=== PATIENT | male | born 1990 | race Caucasian/White ===

== ENCOUNTER 2019-11-10 15:12 | Emergency (ER) | payer OTHER, SELFPAY ==
--- NOTE | 2019-11-10 15:28 | HMH.EDUTC ---
[facility] – [place], [place] Disposition Clinical Impression: Contact dermatitis and eczema Disposition: Home, Self-Care Condition on Discharge: Good Instructions: Contact Dermatitis, DI for Contact Dermatitis Additional Instructions: Try to avoid the offending substance. Take OTC benedryl regularly for the next few days. Follow up with your regular doctor. GO TO THE ER FOR ANY WORSENING SYMPTOMS OR CONCERNS, ESPECIALLY IF YOU HAVE ANY SHORTNESS OF BREATH OR MOUTH SWELLING. Prescriptions: methylPREDNISolone [Medrol] 4 mg PO DIRECTED 6 Days #21 tab.ds.pk Transmission Status: Received by [facility] Triamcinolone Acetonide 1 applicatio TP TIDP PRN 7 Days #1 tube PRN Reason: Itching Transmission Status: Received by [facility] Referrals: Vivek Moore [Primary Care Provider] - Forms: Work/School Release Time of Disposition: 15:47 Medical Decision Making - Medical Records Medical records reviewed: No: I reviewed the patient's medical records. - Joey Inquiry Pt receiving controlled substance: No Vital Signs: 11/10/19 15:32 11/10/19 15:52 Temperature 98.8 F 98.8 F Temperature Source Oral Pulse Rate 90 Pulse Rate [Right Brachial] 90 Respiratory Rate 20 20 Blood Pressure 128/73 Blood Pressure [Right Arm] 128/73 Blood Pressure Mean [Right Arm] 91 Blood Pressure Source [Right Arm] Automatic Cuff Blood Pressure Position [Right Arm] Sitting 02 Sat by Pulse Oximetry 100 Oxygen Delivery Method Room Air [facility] – [place], [place] HPI - General Stated complaint: Rash Time Seen by Provider: 11/10/19 15:44 - History of Present Illness Provider Complaint: He states that for the past 3 days he has been having itching and areas of rash on his arms and upper legs. - Related Data Previous Rx's Medication Instructions Recorded Triamcinolone Acetonide 1 applicatio TP TIDP PRN 7 Days #1 11/10/19 tube methylPREDNISolone [Medrol] 4 mg PO DIRECTED 6 Days #21 11/10/19 tab.ds.pk Allergies Allergy/AdvReac Type Severity Reaction Status Date / Time Sulfa (Sulfonamide Allergy Mild Verified 06/13/18 19:30 Antibiotics) [SULFA (SULFONAMIDE ANTIBIOTICS)] [facility] History - Hepatitis A Screen Attestation statement:: This patient has been screened for Hepatitis A risk factors. I have reviewed the patient's past medical history: Yes - Social History Alcohol Intake: never Occupational Status: employed Housing: house Household Members: significant other, children ROS Obtained: No All systems reviewed & no additional complaints - Constitutional Constitutional: Reports chills, Reports fever(s) - Integumentary/Breasts Skin/Breast: Reports as per HPI - Neurologic Neurologic: Denies tingling/numbness/burning sensations Physical Exam - General General appearance: alert, in no apparent distress - Head Head exam: atraumatic, normocephalic, normal inspection - Eye Eye exam: Present: normal appearance, PERRL, EOMI - ENT ENT exam: Present: normal exam, normal oropharynx, mucous membranes moist, TM's normal bilaterally, normal external ear exam - Neck Neck exam: Present: normal inspection, full ROM, trachea midline. Absent: meningismus, lymphadenopathy - Chest Chest inspection: Present: normal inspection, symmetric chest wall rise. Absent: tenderness - Respiratory Respiratory exam: Present: normal lung sounds bilaterally. Absent: respiratory distress - Cardiovascular Cardiovascular exam: Present: regular rate, normal rhythm. Absent: JVD - Abdominal Exam Abdominal exam: Present: soft, normal bowel sounds. Absent: distention, tenderness, guarding - Extremities Exam Extremities exam: Present: normal inspection, full ROM, normal capillary refill. Absent: calf tenderness - Back Exam Back exam: Present: normal inspection. Absent: tenderness - Neurological Exam Neurological exam: Present: alert, oriented X3 - Psychiatric Psychiatric exam: Present: normal a
[2019-11-10 15:32] VITALS: BP 128/73; PULSE 90; RESP 20; TEMP 37.1; O2SAT 100; BMI 21.6
[2019-11-10 15:52] VITALS: BP 128/73; PULSE 90; RESP 20; TEMP 37.1; O2SAT 100
== END 2019-11-10 15:56 | disposition home or self-care (01) ==
PROVIDERS: Emergency Provider Nurse Practitioner Family; PCP Internal Medicine
DX: L25.9 Unspecified contact dermatitis, unspecified cause (principal); Z88.2 Allergy status to sulfonamides
CPT/HCPCS: 99201

== ENCOUNTER 2020-07-09 19:39 | Emergency (ER) | payer OTHER, SELFPAY ==
[2020-07-09 19:55] VITALS: BP 132/90; PULSE 70; RESP 19; TEMP 36.9; O2SAT 98; BMI 21.4
[2020-07-09 20:01] VITALS: BP 132/90; PULSE 70; RESP 19; TEMP 36.9; O2SAT 98
--- NOTE | 2020-07-09 20:15 | HMH.EDUTC ---
[facility] [place] Clinical Impression: Vomiting Qualifiers: Vomiting type: unspecified Vomiting Intractability: non-intractable Nausea presence: with nausea Qualified Code(s): R11.2 - Nausea with vomiting, unspecified Disposition: Home, Self-Care Condition on Discharge: Good Instructions: DI for Vomiting -- Adult Prescriptions: Ondansetron [Ondansetron Odt 8mg Tab] 8 mg PO TID PRN 10 Days #30 tab PRN Reason: Nausea Transmission Status: Pending to [facility] Referrals: Mingo Soto MD [Primary Care Provider] - Forms: Work/School Release Time of Disposition: 20:16 Medical Decision Making - Joey Inquiry Pt receiving controlled substance: No Vital Signs: 07/09/20 19:55 07/09/20 20:01 Temperature 98.4 F 98.4 F Temperature Source Oral Oral Pulse Rate 70 Pulse Rate [Right Brachial] 70 Respiratory Rate 19 19 Blood Pressure 132/90 Blood Pressure [Right Arm] 132/90 Blood Pressure Mean [Right Arm] 104 Blood Pressure Source Automatic Cuff Blood Pressure Source [Right Arm] Automatic Cuff Blood Pressure Position Sitting Blood Pressure Position [Right Arm] Sitting 02 Sat by Pulse Oximetry 98 Oxygen Delivery Method Room Air Room Air [facility] [place] - General Stated complaint: not feeling great, stomach Time Seen by Provider: 07/09/20 20:15 Mode of Arrival: Ambulatory Source of Information: Patient Limitations: No Limitations Description of Symptoms (Recalled from Triage Doc. by RN): stomach ache and vomiting HEENT Symptoms (Recalled from RN notes): No Resp Symptoms (Recalled from RN notes): No Skin Symptoms (Recalled from RN notes): No MS Symptoms (Recalled from RN notes): No Functional Status (Recalled from RN notes): wnl - History of Present Illness Provider Complaint: Had stomach ache, nausea and vomiting last night and this am. No fever. Seems to be getting better now. No diarrhea. Onset (ago): day(s) (1) Radiation: abdomen Relieving factors: none Exacerbating factors: none Treatments prior to arrival: none - Related Data Previous Rx's Medication Instructions Recorded Triamcinolone Acetonide 1 applicatio TP TIDP PRN 7 Days #1 11/10/19 tube methylPREDNISolone [Medrol] 4 mg PO DIRECTED 6 Days #21 11/10/19 tab.ds.pk Ondansetron [Ondansetron Odt 8mg 8 mg PO TID PRN 10 Days #30 tab 07/09/20 Tab] Allergies Allergy/AdvReac Type Severity Reaction Status Date / Time Sulfa (Sulfonamide Allergy Mild Verified 04/01/20 17:16 Antibiotics) [SULFA (SULFONAMIDE ANTIBIOTICS)] - Worker's Comp Is this a Worker's Comp case?: No H History - Hepatitis A Screen Drug use history?: No High risk sexual behaviors?: No History of sexually transmitted infection?: No Currently employed?: No Childcare worker?: No Do you have indoor plumbing?: Yes Do you have electricity?: Yes Attestation statement:: This patient has been screened for Hepatitis A risk factors. I have reviewed the patient's past medical history: Yes - Social History Alcohol Intake: never Occupational Status: other Housing: house Household Members: significant other, children ROS Obtained: Yes All systems reviewed & no additional complaints - Gastrointestinal Gastrointestingal: Reports: nausea, vomiting Physical Exam - General General appearance: alert, in no apparent distress - Head Head exam: normocephalic - Eye Eye exam: Present: PERRL - ENT ENT exam: Present: normal oropharynx - Respiratory Respiratory exam: Present: normal lung sounds bilaterally - Cardiovascular Cardiovascular exam: Present: regular rate, normal rhythm - Abdominal Exam Abdominal exam: Present: soft. Absent: tenderness - Neurological Exam Neurological exam: Present: alert, oriented X3 - Psychiatric Psychiatric exam: Present: normal affect, normal mood - Skin Skin exam: Present: warm, dry, intact
== END 2020-07-09 20:22 | disposition home or self-care (01) ==
PROVIDERS: Emergency Provider Physician Assistant; PCP Emergency Medicine
DX: R11.2 Nausea with vomiting, unspecified (principal); Z88.2 Allergy status to sulfonamides
CPT/HCPCS: 99202; G0463

== ENCOUNTER 2020-08-07 20:40 | Emergency (ER) | payer OTHER, SELFPAY ==
[2020-08-07 20:52] VITALS: BP 114/85; PULSE 88; RESP 14; TEMP 36.4; O2SAT 98; BMI 23.0
[2020-08-07 20:56] VITALS: BP 117/78; PULSE 79; RESP 16; TEMP 36.6
--- NOTE | 2020-08-07 20:59 | HMH.EDUTC ---
[facility] [place] Impression: COVID-19 virus test result unknown Vomiting Qualifiers: Vomiting type: unspecified Vomiting Intractability: non-intractable Nausea presence: with nausea Qualified Code(s): R11.2 - Nausea with vomiting, unspecified Diarrhea Qualifiers: Diarrhea type: unspecified type Qualified Code(s): R19.7 - Diarrhea, unspecified Disposition: Home, Self-Care Condition on Discharge: Good Instructions: DI for Nausea -- Adult, Nausea and Vomiting-Adult Additional Instructions: Monitor temperature. Seek treatment if fever develops. Follow-up immediately if new or worse symptoms worsen or no noticeable improvement over 48 hours. Increase fluids such as water, Gatorade, Powerade, juice or Pedialyte with limited formula/dietary in children No food is okay as long as you are drinking. Once ready to eat start bland such as bananas, rice, applesauce, toast. Contagious until no diarrhea, vomiting, fever times 48 hours without medication Avoid antidiarrheals unless told otherwise. Best to let the virus run its course. Follow-up immediately for new or worsening symptoms or no noticeable improvement over the next 48 hours. self isolate until test results are known Prescriptions: ondansetron HCL [Zofran 4mg Tab*] 4 mg PO Q8 PRN 3 Days #6 tab PRN Reason: Nausea Prescription Printed Referrals: Mingo Soto MD [Primary Care Provider] - Forms: Work/School Release Time of Disposition: 21:08 Medical Decision Making - Joey Inquiry Pt receiving controlled substance: No Vital Signs: 08/07/20 20:52 08/07/20 20:56 Temperature 97.6 F 98 F Temperature Source Tympanic Pulse Rate 79 Pulse Rate [Right] 88 Respiratory Rate 14 16 Blood Pressure 117/78 Blood Pressure [Right Arm] 114/85 Blood Pressure Mean [Right Arm] 94 Blood Pressure Source [Right Arm] Automatic Cuff Blood Pressure Position [Right Arm] Sitting 02 Sat by Pulse Oximetry 98 Oxygen Delivery Method Room Air Orders (Tests/Meds): ORDERS Category Date Time Status Covid-19 Nasal PCR ([facility]) Routine Lab 08/07/20 20:58 [place] [facility] [place] - General Chief complaint: [facility] Stated complaint: vomitting cramps Time Seen by Provider: 08/07/20 20:59 Mode of Arrival: Ambulatory Source of Information: Patient Limitations: No Limitations Description of Symptoms (Recalled from Triage Doc. by RN): pt states he is having n/v and needs a work note. HEENT Symptoms (Recalled from RN notes): No Resp Symptoms (Recalled from RN notes): No Skin Symptoms (Recalled from RN notes): No MS Symptoms (Recalled from RN notes): No Functional Status (Recalled from RN notes): na - History of Present Illness Provider Complaint: 29 yr old male presents for nausea and vomiting x2 today. pt states abd cramping and needs a work note. - Related Data Previous Rx's Medication Instructions Recorded Triamcinolone Acetonide 1 applicatio TP TIDP PRN 7 Days #1 11/10/19 tube methylPREDNISolone [Medrol] 4 mg PO DIRECTED 6 Days #21 11/10/19 tab.ds.pk Ondansetron [Ondansetron Odt 8mg 8 mg PO TID PRN 10 Days #30 tab 07/09/20 Tab] ondansetron HCL [Zofran 4mg Tab*] 4 mg PO Q8 PRN 3 Days #6 tab 08/07/20 Allergies Allergy/AdvReac Type Severity Reaction Status Date / Time Sulfa (Sulfonamide Allergy Mild Verified 08/07/20 20:51 Antibiotics) [SULFA (SULFONAMIDE ANTIBIOTICS)] - Worker's Comp Is this a Worker's Comp case?: No [facility] History - Hepatitis A Screen Drug use history?: No High risk sexual behaviors?: No History of sexually transmitted infection?: No Currently employed?: No Childcare worker?: No Do you have indoor plumbing?: Yes Do you have electricity?: Yes Attestation statement:: This patient has been screened for Hepatitis A risk factors. I have reviewed the patient's past medical history: Yes - Social History Smoking Status: Unknown if ever smoked Alcohol Intake: never Occu
== END 2020-08-07 21:10 | disposition home or self-care (01) ==
PROVIDERS: Emergency Provider Nurse Practitioner Family; PCP Emergency Medicine
DX: Z20.822 Contact with and (suspected) exposure to COVID-19 (principal); R11.2 Nausea with vomiting, unspecified; Z88.2 Allergy status to sulfonamides
CPT/HCPCS: 99202; G0463; U0003

== ENCOUNTER 2021-10-26 15:30 | Emergency (ER) | payer OTHER, SELFPAY ==
[2021-10-26 16:35] VITALS: BP 128/78; PULSE 87; RESP 18; TEMP 36.8; O2SAT 98; BMI 20.7
[2021-10-26 16:50] VITALS: BP 128/78; PULSE 87; RESP 18; TEMP 36.8; O2SAT 98
--- NOTE | 2021-10-26 17:12 | HMH.EDUTC ---
[facility] – [place] Disposition Clinical Impression: Exposure to COVID-19 virus Disposition: Home, Self-Care Condition on Discharge: Good Instructions: DI for COVID-19 (Suspected or Confirmed ), Preventing the Spread of Coronavirus Discharge Instructions Additional Instructions: *Monitor Temp, Over the counter Motrin or Tylenol as directed/as needed Tylenol every 4 hours and Motrin every 6 hours (as long as your family doctor has told you that you can take it) for fever or pain. and straight to ER if unable to lower temp less than 101.0 after medication given Follow up IMMEDIATELY for new or worsening symptoms or no Noticeable improvement over the next 48-72 hours. 911 for difficulty breathing or swallowing You were tested for today for COVID19 your test result should be back in the next 24-48 hours, you may check your results on the [facility] My Health Portal Make sure to take your Vitamins Vit. C Vit D and Zinc if you can take them Referrals: Janak Vu MD [Primary Care Provider] - As needed Forms: Work/School Release Time of Disposition: 17:17 Medical Decision Making - Joey Inquiry Pt receiving controlled substance: No Joey was queried for this patient: No Vital Signs: 10/26/21 16:35 10/26/21 16:50 Temperature 98.3 F 98.3 F Temperature Source Oral Pulse Rate 87 Pulse Rate [Right Brachial] 87 Respiratory Rate 18 18 Blood Pressure 128/78 Blood Pressure [Right Arm] 128/78 Blood Pressure Mean [Right Arm] 94 Blood Pressure Source [Right Arm] Automatic Cuff Blood Pressure Position [Right Arm] Sitting 02 Sat by Pulse Oximetry 98 Oxygen Delivery Method Room Air Orders (Tests/Meds): ORDERS Category Date Time Status Covid-19 Nasal PCR ([facility]) Routine Lab 10/26/21 16:36 Received [facility] [place] HPI - General Stated complaint: covid test Time Seen by Provider: 10/26/21 17:12 Mode of Arrival: Ambulatory Source of Information: Patient Limitations: No Limitations Description of Symptoms (Recalled from Triage Doc. by RN): COVID TEST D/T EXPOSURE, DENIES SYMPTOMS HEENT Symptoms (Recalled from RN notes): No Resp Symptoms (Recalled from RN notes): No Skin Symptoms (Recalled from RN notes): No MS Symptoms (Recalled from RN notes): No Functional Status (Recalled from RN notes): WNL - History of Present Illness Provider Complaint: Patient states that he was around family members that tested positive for COVID on Sunday so he came in to get tested Denies symptoms - Related Data Previous Rx's Medication Instructions Recorded Triamcinolone Acetonide 1 applicatio TP TIDP PRN 7 Days #1 11/10/19 tube methylPREDNISolone [Medrol] 4 mg PO DIRECTED 6 Days #21 11/10/19 tab.ds.pk Ondansetron [Ondansetron Odt 8mg 8 mg PO TID PRN 10 Days #30 tab 07/09/20 Tab] ondansetron HCL [Zofran 4mg Tab*] 4 mg PO Q8 PRN 3 Days #6 tab 08/07/20 Allergies Allergy/AdvReac Type Severity Reaction Status Date / Time Sulfa (Sulfonamide Allergy Mild Verified 08/07/20 20:51 Antibiotics) [SULFA (SULFONAMIDE ANTIBIOTICS)] - Worker's Comp Is this a Worker's Comp case?: No [facility] History - Hepatitis A Screen Attestation statement:: This patient has been screened for Hepatitis A risk factors. I have reviewed the patient's past medical history: Yes - Social History Smoking Status: Unknown if ever smoked Alcohol Intake: never Occupational Status: employed Housing: house Household Members: significant other, children ROS Obtained: Yes All systems reviewed & no additional complaints, Yes Systems reviewed as appropriate & no additional complaints - Constitutional Constitutional: Reports system reviewed and no additional complaints, except as docu, Denies body ache, Denies chills, Denies fever(s) - ENT Ears, Nose, Mouth, and Throat: Reports system reviewed and no additional complaints, except as docu, Denies nasal congestion, Denies nasal discharge, Denies sore throat - Cardiovascular Card
== END 2021-10-26 17:23 | disposition home or self-care (01) ==
PROVIDERS: Emergency Provider Nurse Practitioner; PCP Family Medicine
DX: Z20.822 Contact with and (suspected) exposure to COVID-19 (principal)
CPT/HCPCS: 99212; C9803; G0463; U0003; U0005

== ENCOUNTER 2021-11-01 16:07 | Emergency (ER) | payer OTHER, SELFPAY ==
[2021-11-01 16:30] VITALS: BP 116/27; PULSE 91; RESP 19; TEMP 36.8; O2SAT 98; BMI 20.5
[2021-11-01 16:56] VITALS: BP 116/27; PULSE 91; RESP 19; TEMP 36.8; O2SAT 98
--- NOTE | 2021-11-01 17:10 | HMH.EDUTC ---
[facility] [place] Clinical Impression: Encounter for laboratory testing for COVID-19 virus Disposition: Home, Self-Care Condition on Discharge: Good Instructions: DI for COVID-19 (Suspected or Confirmed ), Preventing the Spread of Coronavirus Discharge Instructions Additional Instructions: *Monitor Temp, Over the counter Motrin or Tylenol as directed/as needed Tylenol every 4 hours and Motrin every 6 hours (as long as your family doctor has told you that you can take it) for fever or pain. and straight to ER if unable to lower temp less than 101.0 after medication given Follow up IMMEDIATELY for new or worsening symptoms or no Noticeable improvement over the next 48-72 hours. 911 for difficulty breathing or swallowing You were tested for today for COVID19 your test result should be back in the next 24-48 hours, you may check your results on the [facility] My Health Portal Make sure to take your Vitamins Vit. C Vit D and Zinc if you can take them Referrals: Provider,Referral, MD [Primary Care Provider] - As needed Forms: Work/School Release Medical Decision Making - Joey Inquiry Pt receiving controlled substance: No Joey was queried for this patient: No Vital Signs: 11/01/21 16:30 11/01/21 16:56 Temperature 98.2 F 98.2 F Temperature Source Oral Pulse Rate 91 H Pulse Rate [Right Brachial] 91 H Respiratory Rate 19 19 Blood Pressure 116/27 L Blood Pressure [Right Arm] 116/27 L Blood Pressure Mean [Right Arm] 56 Blood Pressure Source [Right Arm] Automatic Cuff Blood Pressure Position [Right Arm] Sitting 02 Sat by Pulse Oximetry 98 Oxygen Delivery Method Room Air Orders (Tests/Meds): ORDERS Category Date Time Status Covid-19 Nasal PCR ([facility]) Routine Lab 11/01/21 16:17 Ordered [facility] [place] - General Stated complaint: covid test Time Seen by Provider: 11/01/21 17:10 Mode of Arrival: Ambulatory Source of Information: Patient Limitations: No Limitations Description of Symptoms (Recalled from Triage Doc. by RN): COVID TEST HEENT Symptoms (Recalled from RN notes): No Resp Symptoms (Recalled from RN notes): No Skin Symptoms (Recalled from RN notes): No MS Symptoms (Recalled from RN notes): No Functional Status (Recalled from RN notes): WNL - History of Present Illness Provider Complaint: Patient was positive for COVID states that he was told he needed to get retested after 5 days so he came in to get retested Denies any symptoms - Related Data Previous Rx's Medication Instructions Recorded Triamcinolone Acetonide 1 applicatio TP TIDP PRN 7 Days #1 11/10/19 tube methylPREDNISolone [Medrol] 4 mg PO DIRECTED 6 Days #21 11/10/19 tab.ds.pk Ondansetron [Ondansetron Odt 8mg 8 mg PO TID PRN 10 Days #30 tab 07/09/20 Tab] ondansetron HCL [Zofran 4mg Tab*] 4 mg PO Q8 PRN 3 Days #6 tab 08/07/20 Allergies Allergy/AdvReac Type Severity Reaction Status Date / Time Sulfa (Sulfonamide Allergy Mild Verified 08/07/20 20:51 Antibiotics) [SULFA (SULFONAMIDE ANTIBIOTICS)] - Worker's Comp Is this a Worker's Comp case?: No [facility] History - Hepatitis A Screen Attestation statement:: This patient has been screened for Hepatitis A risk factors. I have reviewed the patient's past medical history: Yes - Social History Smoking Status: Unknown if ever smoked Alcohol Intake: never Occupational Status: employed Housing: house Household Members: significant other, children ROS Obtained: Yes All systems reviewed & no additional complaints, Yes Systems reviewed as appropriate & no additional complaints - Constitutional Constitutional: Reports system reviewed and no additional complaints, except as docu, Denies body ache, Denies chills, Denies fever(s) - ENT Ears, Nose, Mouth, and Throat: Reports system reviewed and no additional complaints, except as docu, Denies nasal congestion, Denies nasal discharge, Denies sore throat - Cardiovascular Cardiovascular: Reports
== END 2021-11-01 17:20 | disposition home or self-care (01) ==
PROVIDERS: Emergency Provider Nurse Practitioner
DX: Z20.828 Contact with and (suspected) exposure to other viral communicable diseases (principal)
CPT/HCPCS: 99212; C9803; G0463; U0003; U0005

== ENCOUNTER 2023-05-17 13:46 | Emergency (ER) | payer OTHER, SELFPAY ==
[2023-05-17 14:15] VITALS: BP 118/88; PULSE 88; RESP 18; TEMP 36.4; O2SAT 97; BMI 23.8
--- NOTE | 2023-05-17 14:29 | EXP.UTC ---
Discharge Plan Disposition Patient Disposition: Home, Self-Care Condition: Good Prescriptions Prescriptions: New azithromycin [Zithromax] 250 mg tablet 250 mg PO UD DOSE PK Qty: 6 0RF Rx Instructions: Take two (2) tablets today, then one (1) tablet days #2 thru #5 benzonatate [benzonatate] 100 mg capsule 100 mg PO TIDP PRN (Reason: Cough) Qty: 30 0RF oseltamivir [Tamiflu] 75 mg capsule 75 mg PO BID Qty: 10 0RF Referrals Follow up/Referrals: Janak Vu MD [Primary Care Provider] - See instructions Activity Restrictions/Add. Instructions Additional Instructions/Restrictions: Drink plenty of fluids. Take tylenol or ibuprofen for pain or fever. Take the medications as directed. Follow up with your regular doctor. GO TO THE ER FOR ANY WORSENING SYMPTOMS Clinical Impressions Clinical Impression: Acute viral syndrome, Sinusitis, Otitis media Instructions Patient Instructions: DI for Influenza -- Adult, Oseltamivir Discharge ED Provider: Demarcus Casillas [facility] General Stated complaint: cough, nose congestion Time Seen by Provider: 05/17/23 14:29 History of Present Illness Provider Complaint: He states that for the past 2 days he has had fever, chills, body aches, ear pain, sore throat and a cough. He has been exposed influenza a by all of his children currently having it. Related Data Previous Rx's Medication Instructions Recorded azithromycin 250 mg tablet 250 mg PO UD DOSE PK #6 tabs 05/17/23 (Zithromax) benzonatate 100 mg capsule 100 mg PO TIDP PRN Cough #30 caps 05/17/23 oseltamivir 75 mg capsule (Tamiflu) 75 mg PO BID #10 caps 05/17/23 Allergies Allergy/AdvReac Type Severity Reaction Status Date / Time Sulfa (Sulfonamide Allergy Mild Verified 05/17/23 14:48 Antibiotics) [SULFA (SULFONAMIDE ANTIBIOTICS)] [facility] Disclaimer: The information contained in this section may have been updated after the patient was seen, as this information can be updated by other users. Social History Smoking Status: Unknown if ever smoked second hand exposure: No alcohol intake: never current occupational status: employed Travel in the last 8 weeks: None household members: significant other and children housing: house ROS Obtained: Yes All systems reviewed & no additional complaints except as documented Constitutional Constitutional: Reports chills and Reports fever(s) Eyes Eyes: Denies eye discharge ENT Ears, Nose, Mouth, and Throat: Reports as per HPI Cardiovascular Cardiovascular: Denies chest pain Respiratory Respiratory: Denies chest congestion and Reports cough Gastrointestinal Gastrointestingal: Reports nausea; Denies abdominal pain, constipation, cramping, diarrhea or vomiting Musculoskeletal Musculoskeletal: Denies arthralgias Integumentary/Breasts Skin/Breast: Denies rash Neurologic Neurologic: Denies paresthesias Physical Exam General General appearance: alert and in no apparent distress Head Head exam: atraumatic, normocephalic and normal inspection Eye Eye exam: Present normal appearance; Absent PERRL or EOMI ENT ENT exam: Present mucous membranes moist and normal external ear exam Expanded ENT Exam TM/Canal exam: Bilateral TM: erythema, bulging and effusion Nose exam: Absent sinus tenderness Nasal speculum exam: Bilateral: normal Mouth exam: Present normal external inspection and other; Absent drooling Teeth exam: Present normal inspection Throat exam: Present tonsillar erythema and tonsillomegaly Neck Neck exam: Present normal inspection, full ROM and trachea midline; Absent tenderness, meningismus or lymphadenopathy Chest Chest inspection: Present normal inspection and symmetric chest wall rise; Absent tenderness Respiratory Respiratory exam: Present normal lung sounds bilaterally; Absent respiratory distress, wheezes or stridor Cardiovascular Cardiovascular exam: Present regular rate, normal rhythm and normal heart sounds; Absent tachycardia or irregular rhythm Abdominal Exam Abdominal exam: Present soft and normal bowel sounds; Absent distention, tenderness, guarding, rebound or rigidity Extremities Exam Extremities exam: Present normal inspection and normal capillary refill; Absent tenderness, joint swelling or calf tenderness Back Exam Back exam: Present normal inspection and full ROM; Absent tenderness, CVA tenderness (R) or CVA tenderness (L) Neurological Exam Neurological exam: Present alert, oriented X3, CN II-XII intact, normal gait and reflexes normal; Absent motor sensory deficit Psychiatric Psychiatric exam: Present normal affect and normal mood Skin Skin exam: Present warm, dry, intact and normal color Lymphatic Lymphatic Findings: no adenopathy Medical Decision Making Medical Records Medical records reviewed: No I reviewed the patient's medical records. Joey Inquiry Pt receiving controlled substance: No
[2023-05-17 14:50] LABS: Adenovirus,PCR Not Detected (NotDetected); Coronavirus 19, PCR Not Detected (NotDetected); Coronavirus 229E Not Detected (NotDetected); Coronavirus NL63 Not Detected (NotDetected); Coronavirus OC43 Not Detected (NotDetected); Coronovirus HKU1,PCR Not Detected (NotDetected); Human Metapneumovirus Not Detected (NotDetected); Influenza A, PCR Not Detected (NotDetected); Influenza AH1, 2009 Not Detected (NotDetected); Influenza AH1, PCR Not Detected (NotDetected); Influenza AH3,PCR Not Detected (NotDetected); Influenza B, PCR Not Detected (NotDetected); Parainfluenza 1, PCR Not Detected (NotDetected); Parainfluenza 2, PCR Not Detected (NotDetected); Parainfluenza 3, PCR Not Detected (NotDetected); Parainfluenza 4, PCR Not Detected (NotDetected); Respiratory Syncytial Virus Not Detected (NotDetected); Rhinovirus/Enterovirus Not Detected (NotDetected)
[2023-05-17 15:14] VITALS: BP 118/88; PULSE 88; RESP 18; TEMP 36.4; O2SAT 97
== END 2023-05-17 15:14 | disposition home or self-care (01) ==
PROVIDERS: Emergency Provider Nurse Practitioner Family; PCP Family Medicine
DX: J01.90 Acute sinusitis, unspecified (principal); H66.93 Otitis media, unspecified, bilateral; R50.9 Fever, unspecified; R05.9 Cough, unspecified; B34.9 Viral infection, unspecified
CPT/HCPCS: 87632; 87635; 99212; 99214; G0463

== ENCOUNTER 2023-10-29 16:11 | Emergency (ER) | payer SELFPAY ==
[2023-10-29 16:35] VITALS: BP 122/90; PULSE 88; RESP 20; TEMP 37; O2SAT 100; BMI 23.1
--- NOTE | 2023-10-29 17:02 | ED_ITS ---
Discharge Plan Disposition Patient Disposition: Home, Self-Care Condition: Good Prescriptions Prescriptions: New lidocaine HCl-hydrocortison ac 2 %-2 % (7 gram) kit 1 applic [place] BID Qty: 1 1RF Referrals Follow up/Referrals: Janak Vu MD [Primary Care Provider] - See instructions Activity Restrictions/Add. Instructions Additional Instructions/Restrictions: Follow up with primary care provider Clinical Impressions Clinical Impression: Hemorrhoids, external Instructions Patient Instructions: DI for Hemorrhoids Discharge ED Provider: Estefani Rogers [facility] [place] HPI General Stated complaint: Hemorrhoid pain Time Seen by Provider: 10/29/23 17:00 History of Present Illness Provider Complaint: Pt reports that for the last 3 days he has had issues with a hemorrhoid. He reports that he has used preparation H, but this has not helped much. He states that he lifts a lot of boxes at work and feels he may have strained too much. Related Data Previous Rx's Medication Instructions Recorded lidocaine 2 %-hydrocortisone 2 % 1 applic NH BID #1 ea 10/29/23 (7 gram) rectal kit cream and wipes Allergies Allergy/AdvReac Type Severity Reaction Status Date / Time Sulfa (Sulfonamide Allergy Mild Verified 05/17/23 14:48 Antibiotics) [SULFA (SULFONAMIDE ANTIBIOTICS)] [facility] Disclaimer: The information contained in this section may have been updated after the pat ient was seen, as this information can be updated by other users. Social History Smoking Status: Unknown if ever smoked second hand exposure: No alcohol intake: never current occupational status: employed Travel in the last 8 weeks: None household members: significant other and children housing: house ROS Obtained: Yes All systems reviewed & no additional complaints except as documented Constitutional Constitutional: Reports system reviewed and no additional complaints, except as documented Eyes Eyes: Reports system reviewed and no additional complaints, except as documented ENT Ears, Nose, Mouth, and Throat: Reports system reviewed and no additional complaints, except as documented Cardiovascular Cardiovascular: Reports system reviewed and no additional complaints, except as documented Respiratory Respiratory: Reports system reviewed and no additional complaints, except as documented Gastrointestinal Gastrointestingal: Reports system reviewed and no additional complaints, except as documented Comments: hemorrhoid Genitourinary Male Genitourinary: Reports system reviewed and no additional complaints, except as documented Musculoskeletal Musculoskeletal: Reports system reviewed and no additional complaints, except as documented Integumentary/Breasts Skin/Breast: Reports system reviewed and no additional complaints, except as documented Neurologic Neurologic: Reports system reviewed and no additional complaints, except as documented Endocrine Endocrine: Reports system reviewed and no additional complaints, except as documented Hematologic/Lymphatic Henatologic/Lymphatic: Reports system reviewed and no additional complaints, except as documented Allergic/Immunologic Allergic/Immunologic: Reports system reviewed and no additional complaints, except as documented Physical Exam General General appearance: alert and in no apparent distress Head Head exam: atraumatic and normocephalic Eye Eye exam: Present normal appearance ENT ENT exam: Present normal exam and normal oropharynx Neck Neck exam: Present normal inspection Chest Chest inspection: Present normal inspection and symmetric chest wall rise Respiratory Respiratory exam: Present normal lung sounds bilaterally Cardiovascular Cardiovascular exam: Present regular rate, normal rhythm and normal heart sounds Abdominal Exam Abdominal exam: Present soft and normal bowel sounds Extremities Exam Extremities exam: Present normal inspection Back Exam Back exam: Present normal inspection Neurological Exam Neurological exam: Present alert and oriented X3 Psychiatric Psychiatric exam: Present normal affect and normal mood Skin Skin exam: Present warm, dry and intact Lymphatic Lymphatic Findings: no adenopathy Medical Decision Making Joey Inquiry Pt receiving controlled substance: No Joey was queried for this patient: No
[2023-10-29 17:37] VITALS: BP 122/90; PULSE 88; RESP 20; TEMP 37; O2SAT 100
== END 2023-10-29 17:43 | disposition home or self-care (01) ==
PROVIDERS: Emergency Provider Nurse Practitioner Family; PCP Family Medicine
DX: K64.8 Other hemorrhoids (principal)
CPT/HCPCS: 99212; 99214; G0463

== ENCOUNTER 2024-04-15 19:06 | Emergency (ER) | payer OTHER, SELFPAY ==
[2024-04-15 19:26] VITALS: BP 126/88; PULSE 75; RESP 19; TEMP 36.7; O2SAT 98; BMI 24.0
--- NOTE | 2024-04-15 20:13 | ED_ITS ---
Discharge Plan Disposition Patient Disposition: Home, Self-Care Condition: Good Prescriptions Prescriptions: New amoxicillin 500 mg capsule 500 mg PO TID 7 Days Qty: 21 0RF methylprednisolone [Medrol (Jagdish)] 4 mg tablets,dose pack See Rx Instructions .Route .COMPLEX 6 Days Qty: 21 0RF Rx Instructions: taper pack; [id number]-dzasaeirj-SG [Bromfed DM] 2-30-10 mg/5 mL syrup 10 ml PO Q6H PRN (Reason: cold symptoms) Qty: 150 0RF Referrals Follow up/Referrals: Víctor Pozo DO [Primary Care Provider] - See instructions Activity Restrictions/Add. Instructions Additional Instructions/Restrictions: *Monitor Temp, Over the counter Motrin or Tylenol as directed/as needed Tylenol every 4 hours and Motrin every 6 hours (as long as your family doctor has told you that you can take it) for fever or pain. and straight to ER if unable to lower temp less than 101.0 after medication given *Warm salt water gargles may help to soothe the throat *Throat Lozenges? *Warm fluids like tea with honey may help to soothe the throat? *Sleep elevated *Humidifier/Vaporizer *Take medication as prescribed *Bromfed may cause drowsiness. Know how it effects you (your child) before driving, caring for small child, or sending your child to school. Not other a ntihistamines/allergy medications while taking bromfed Your throat swab was sent for culture. Those results are typically sent to your primary care. Be sure to follow up in 2-3 days with your family doctor/primary care physician if no improvement so they can review those result and treat if necessary. If you don?t have a primary care doctor, I recommend you get one but in the mean time, you will have to return to a walk in clinic Follow up IMMEDIATELY for new or worsening symptoms or no Noticeable improvement over the next 48-72 hours. 911 for difficulty breathing or swallowing Clinical Impressions Clinical Impression: Otitis media Instructions Patient Instructions: Middle Ear Infection, Amoxicillin Print Language Print Language: Yi Discharge ED Provider: April Broderick [facility] [place] HPI General Stated complaint: runny nose,cough Mode of Arrival: Ambulatory Source of Information: Patient Time Seen by Provider: 04/15/24 20:13 Description of Symptoms (Recalled from Triage Doc. by RN): COUGHING, SNOTTY NOSE HEENT Symptoms (Recalled from RN notes): No Resp Symptoms (Recalled from RN notes): Yes Skin Symptoms (Recalled from RN notes): No MS Symptoms (Recalled from RN notes): No Functional Status (Recalled from RN notes): WNL History of Present Illness Provider Complaint: Patient states that he has been having sinus congestion and pressure and cough States that his kids has been sick too and today he wasnt feeling any better so he came in to get checked Related Data Previous Rx's ?Medication ?Instructions ?Recorded amoxicillin 500 mg capsule 500 mg PO TID 7 days #21 caps 04/15/24 mkcgrhtgsfuqfen-ftadqlpkhlerzet-AO 10 ml PO Q6H PRN cold symptoms 04/15/24 2 mg-30 mg-10 mg/5 mL oral syrup #150 mL (Bromfed DM) methylprednisolone 4 mg tablets in See Rx Instructions .Route 04/15/24 a dose pack (Medrol (Jagdish)) .COMPLEX 6 days #21 tabs Allergies Allergy/AdvReac Type Severity Reaction Status Date / Time Sulfa (Sulfonamide Allergy Mild Verified 05/17/23 14:48 Antibiotics) (SULFA (SULFONAMIDE ANTIBIOTICS)) Worker's Comp Is this a Worker's Comp case?: No [facility] Disclaimer: The information contained in this section may have been updated after the patient was seen, as this information can be updated by other users. Social History Smoking Status: Unknown if ever smoked second hand exposure: No alcohol intake: never current occupational status: employed Travel in the last 8 weeks: None household members: significant other and children housing: house ROS Obtained: Yes All systems reviewed & no additional complaints except as documented and Yes Systems reviewed as appropriate & no additional complaints except as documented Constitutional Constitutional: Reports system reviewed and no additional complaints, except as documented, Reports as per HPI and Reports headache(s) ENT Ears, Nose, Mouth, and Throat: Reports system reviewed and no additional complaints, except as documented, Reports as per HPI, Reports headache(s), Reports nasal congestion, Reports sinus pain and Reports sinus pressure Cardiovascular Cardiovascular: Reports system reviewed and no additional complaints, except as documented and Reports as per HPI Respiratory Respiratory: Reports system reviewed and no additional complaints, except as documented, Reports as per HPI and Reports cough Gastrointestinal Gastrointestingal: Reports system reviewed and no additional complaints, except as documented and as per HPI Neurologic Neurologic: Reports headache(s) Physical Exam General General appearance: alert and in no apparent distress ENT ENT exam: Present mucous membranes moist Expanded ENT Exam TM/Canal exam: Left TM: erythema and bulging Nose exam: Present sinus tenderness Throat exam: Present normal inspection Respiratory Respiratory exam: Present normal lung sounds bilaterally; Absent respiratory distress or wheezes Cardiovascular Cardiovascular exam: Present regular rate, normal rhythm and normal heart sounds Neurological Exam Neurological exam: Present alert, oriented X3 and normal gait Medical Decision Making Medical Records Screening: Per USPSTF and CDC recommendations, given the prevalence of disease in our region, it is our hospital?s policy to screen for HIV and viral Hepatitis for all patients aged 18 and over and those with ongoing risk factors. Joey Inquiry Pt receiving controlled substance: No Joey was queried for this patient: No Vital Signs: 04/15/24 19:26 Temperature 98.0 F Temperature Source Oral Pulse Rate [Left Radial] 75 Respiratory Rate 19 Blood Pressure [Left Arm] 126/88 Blood Pressure Mean [Left Arm] 100 02 Sat by Pulse Oximetry 98
[2024-04-15 20:23] VITALS: BP 126/88; PULSE 75; RESP 19; TEMP 36.7
== END 2024-04-15 20:26 | disposition home or self-care (01) ==
PROVIDERS: Emergency Provider Nurse Practitioner; PCP Internal Medicine
DX: H66.92 Otitis media, unspecified, left ear (principal); R05.9 Cough, unspecified; R09.89 Other specified symptoms and signs involving the circulatory and respiratory systems
CPT/HCPCS: 99212; G0381